=== PATIENT | male | born 1950 | race Caucasian/White ===

== ENCOUNTER 2017-03-11 16:28 | Emergency (ER) | payer MEDICARE ==
[~2017-03-11] VITALS: Ht 175.2 cm; Wt 88.5 kg
[2017-03-11] MEDS ORDERED: KEFLEX500 M1 PO (16:48)
[2017-03-11] MEDS ORDERED: NAPROSYN500 MG PO (16:48)
== END 2017-03-11 17:22 | disposition home or self-care (01) ==
LOC: ED 16:28
DX: S61.211A Laceration without foreign body of left index finger without damage to nail, initial encounter (principal); R03.0 Elevated blood-pressure reading, without diagnosis of hypertension; Z23 Encounter for immunization; W45.8XXA Other foreign body or object entering through skin, initial encounter; Y93.89 Activity, other specified; Y92.89 Other specified places as the place of occurrence of the external cause; Y99.8 Other external cause status

== ENCOUNTER → 2020-11-07 | Outpatient (CLI) | payer MEDICARE ==
[~2020-11-07] MED LIST: ACYCLOVIR200 MG PO; AMLODIPINE BESY10 MG PO; BACLOFEN5 MG PO; FENOFIBRATE54 MG PO; FLOMAX0.4 MG PO; GLUCOPHAGE1000 MG PO; KEFLEX500 M1 PO; LYRICA150 M1 PO; METOPROLOL SUCC50 M1 PO; NAPROSYN500 MG PO; PRAVASTATIN SOD80 MG PO; SANDIMMUNE25 MG PO; ULTRAM50 MG PO; ZOLOFT50 MG PO
== END | disposition home or self-care (01) ==
LOC: COVID19 10:22
PROVIDERS: ATTEND Ophthalmology
DX: Z01.812 Encounter for preprocedural laboratory examination (principal); Z20.822 Contact with and (suspected) exposure to COVID-19

== ENCOUNTER → 2020-11-12 | Day surgery (SDC) | payer MEDICARE ==
[~2020-11-12] VITALS: Ht 175.2 cm; Wt 86.2 kg
[2020-11-12 09:00] VITALS: BP 120/87
[2020-11-12 10:17] VITALS: BP 107/74
[2020-11-12 10:32] VITALS: BP 125/76
[2020-11-12 10:47] VITALS: BP 128/73
== END | disposition home or self-care (01) ==
LOC: SDC 11-06 08:00
PROVIDERS: ATTEND Ophthalmology
DX: H25.11 Age-related nuclear cataract, right eye (principal); I10 Essential (primary) hypertension; E11.9 Type 2 diabetes mellitus without complications; M79.7 Fibromyalgia; E78.00 Pure hypercholesterolemia, unspecified; Z85.828 Personal history of other malignant neoplasm of skin; Z79.899 Other long term (current) drug therapy

== ENCOUNTER → 2021-01-09 | Outpatient (CLI) | payer MEDICARE ==
[~2021-01-09] MED LIST changes: +BACLOFEN20 M1 PO; +FUROSEMIDE20 M1 PO; +PREGABALIN150 MG PO
== END | disposition home or self-care (01) ==
LOC: LAB 13:54
PROVIDERS: ATTEND Ophthalmology
DX: Z01.812 Encounter for preprocedural laboratory examination (principal); Z20.822 Contact with and (suspected) exposure to COVID-19

== ENCOUNTER → 2021-01-14 | Outpatient (CLI) | payer MEDICARE | END | disposition home or self-care (01) | LOC: RAD 10:47 | PROVIDERS: ATTEND Family Medicine | DX: M16.11 Unilateral primary osteoarthritis, right hip (principal); M79.89 Other specified soft tissue disorders ==

== ENCOUNTER → 2021-01-14 | Day surgery (SDC) | payer MEDICARE ==
[~2021-01-14] VITALS: Ht 175.2 cm; Wt 81.6 kg
[2021-01-14 08:52] VITALS: BP 135/84
[2021-01-14 09:57] VITALS: BP 141/85
[2021-01-14 10:12] VITALS: BP 147/89
[2021-01-14 10:25] VITALS: BP 145/91
== END | disposition home or self-care (01) ==
LOC: SDC 12-12 08:45
PROVIDERS: ATTEND Ophthalmology
DX: H25.12 Age-related nuclear cataract, left eye (principal); M79.7 Fibromyalgia; I10 Essential (primary) hypertension; E11.9 Type 2 diabetes mellitus without complications; E78.00 Pure hypercholesterolemia, unspecified; Z85.828 Personal history of other malignant neoplasm of skin; Z79.899 Other long term (current) drug therapy

== ENCOUNTER → 2023-09-28 | Outpatient (CLI) | payer MEDICARE ==
[~2023-09-28] MED LIST changes: +B12 ACTIVE1000 MCG PO; +BUMETANIDE1 MG PO; +GLIMEPIRIDE4 M1 PO; +Hydralazine Hyd25 MG PO; +MAGNESIUM400 M1 PO; +PANTOPRAZOLE SO40 MG PO; +ROSUVASTATIN CA10 MG PO; +VITAMIN C500 M8 PO; +ZYLOPRIM100 MG PO
== END | disposition home or self-care (01) ==
LOC: LAB 14:37
PROVIDERS: ATTEND Internal Medicine Critical Care Medicine
DX: R06.83 Snoring (principal); R53.83 Other fatigue; G25.81 Restless legs syndrome; Z87.891 Personal history of nicotine dependence; Z68.29 Body mass index [BMI] 29.0-29.9, adult